=== PATIENT | female | born 1995 | race Caucasian/White ===

== ENCOUNTER 2020-12-02 16:50 | Emergency (ER) | payer OTHER, SELFPAY ==
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
[2020-12-02 18:03] VITALS: BP 121/78; PULSE 88; RESP 16; TEMP 36.8; O2SAT 98; BMI 36.8
[2020-12-02 18:32] VITALS: BP 136/67; PULSE 88; RESP 18; TEMP 36.7; O2SAT 98
[2020-12-02] MEDS: Acetaminophen 325 MG TABLET 650 MG PO (19:30)
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
== END 2020-12-02 22:14 | disposition home or self-care (01) ==
PROVIDERS: Emergency Provider Emergency Medicine
DX: S16.1XXA Strain of muscle, fascia and tendon at neck level, initial encounter (principal); S40.012A Contusion of left shoulder, initial encounter; V43.52XA Car driver injured in collision with other type car in traffic accident, initial encounter; Y93.89 Activity, other specified; Y92.414 Local residential or business street as the place of occurrence of the external cause; Y99.9 Unspecified external cause status
CPT/HCPCS: 73030; 99284